=== PATIENT | female | born 1990 | race American Indian/Alaskan Native ===

== ENCOUNTER 2018-10-15 07:48 | Emergency (ER) | payer OTHER ==
[2018-10-15 07:53] VITALS: O2SAT 100
--- NOTE | 2018-10-15 08:07 | ED PDOC ---
HPI:Nausea, Vomiting, Diarrhea Time Seen by Provider: 10/15/18 07:55 Additional Complaint(s): Pt seen and examined at bedside with attending. 28F no PMH p/w N/V/diarrhea since last night but endorses she also drank some wine. As per patient she warmed up leftover refrigerated [place] food last night and then within 1-2 hours began having NBNB nausea and vomiting with 3 episodes of non-bloody diarrhea overnight. Symptoms are primarily vomiting but she denies any burning or reflux symptoms, fevers, chills, or sick contacts. Past Medical History Vital Signs: Last Vital Signs Temp 36.9 C 10/15/18 07:52 Pulse 74 10/15/18 07:52 Resp 16 10/15/18 07:52 BP 132/79 10/15/18 07:52 Pulse Ox 100 10/15/18 07:52 - Medical History PMH: No Chronic Diseases - Family History Family History: States: Unknown Family Hx - Home Medications Home Medications: Ambulatory Orders Medication Instructions Recorded Ondansetron HCl [Zofran] 4 mg PO Q6H #4 tablet 10/15/18 - Allergies Allergies/Adverse Reactions: Allergies Allergy/AdvReac Type Severity Reaction Status Date / Time No Known Allergies Allergy Verified 10/15/18 08:03 Review of Systems Gastrointestinal: Positive for: Nausea, Vomiting (x7-8), Diarrhea (x3) Physical Exam - Reviewed Vital Signs Reviewed: Yes - Physical Exam Appears: Positive for: Non-toxic Head Exam: Positive for: ATRAUMATIC Skin: Positive for: Normal Color, Warm, Dry Eye Exam: Positive for: Normal appearance, EOMI ENT: Positive for: Normal ENT Inspection Neck: Positive for: Supple Cardiovascular/Chest: Positive for: Regular Rate, Rhythm. Negative for: Murmur Respiratory: Positive for: Normal Breath Sounds. Negative for: Rales, Wheezing Gastrointestinal/Abdominal: Positive for: Normal Exam, Bowel Sounds, Soft. Negative for: Tenderness Extremity: Positive for: Normal ROM Neurologic/Psych: Positive for: Alert, Oriented - ECG O2 Sat by Pulse Oximetry: 100 Medical Decision Making Medical Decision Making: Suspect gastroenteritis - Zofran, 1L LR bolus - Urine dip, U preg - PO Challenge - Reeval Patient tolerating Consuelo Norma and crackers and feeling better. Will complete IVF bolus and then d/c. Disposition - Clinical Impression Clinical Impression: Gastroenteritis - Patient ED Disposition Is Patient to be Admitted: No Counseled Patient/Family Regarding: Diagnosis, Need For Followup, Rx Given - Disposition Disposition: Routine/Home Disposition Time: 10:23 Condition: IMPROVED Additional Instructions: Follow up with primary care doctor in 3-5 days Return to the ER for worsening nausea, vomiting, diarrhea or development of fevers, chills Take medication as prescribed Stay hydrated Prescriptions: Ondansetron HCl [Zofran] 4 mg PO Q6H #4 tablet Instructions: Gastroenteritis (ED) Forms: [facility] ([place]), [facility] ED School/Work Excuse
[2018-10-15] MEDS: Lactated Ringer's 1,000 ML IV SCH ×2 (08:38→10:06)
[2018-10-15 11:09] VITALS: BP 112/72; PULSE 76; RESP 18; TEMP 97.8
== END 2018-10-15 10:55 | disposition home or self-care (01) ==
LOC: H.ER 07:48
DX: K52.9 Noninfective gastroenteritis and colitis, unspecified (principal)
CPT/HCPCS: 81025; 96374; 99284; J2405; J7120